=== PATIENT | male | born 1945 | race Caucasian/White ===

== ENCOUNTER 2021-03-09 19:14 | Emergency (ER) | payer BC, MEDICARE ==
[2021-03-09 20:26] LABS: RED BLOOD COUNT 2.18 M/UL (4.20-5.50); WHITE BLOOD COUNT 11.6 K/UL (4.5-11.0)
[2021-03-09 20:41] LABS: HEMOGLOBIN 3.9 gm/dl (14.0-17.5)
[2021-03-10 01:50] LABS: WHITE BLOOD COUNT 14.3 K/UL (4.5-11.0)
[2021-03-10 01:54] LABS: HEMOGLOBIN 7.2 gm/dl (14.0-17.5); RED BLOOD COUNT 2.99 M/UL (4.20-5.50)
[2021-03-10 05:35] LABS: HEMOGLOBIN 7.3 gm/dl (14.0-17.5); RED BLOOD COUNT 2.97 M/UL (4.20-5.50)
[2021-03-10 05:36] LABS: WHITE BLOOD COUNT 19.9 K/UL (4.5-11.0)
[2021-03-11 09:14] LABS: HBSAG SCREEN Negative (Negative); HEP A AB, IGM Negative (Negative); HEP B CORE AB, IGM Negative (Negative); HEP C VIRUS AB 0.1 (0.0-0.9)
== END 2021-03-10 14:10 | disposition short-term general hospital (02) ==
LOC: ER1 19:14
PROVIDERS: Family Medicine
DX: K92.2 Gastrointestinal hemorrhage, unspecified (principal); E87.6 Hypokalemia; Z20.822 Contact with and (suspected) exposure to COVID-19
CPT/HCPCS: 36430; 36600; 51702; 71045; 76700; 80048; 80053; 80074; 81001; 82272; 82803; 82962; 85025; 85027; 85610; 86850; 86900; 86901; 86920; 86927; 87086; 96374; 96375; 99285; C9113; J1940; J2405; J7050; J7070; P9016; P9017; U0002

== ENCOUNTER 2021-06-04 11:17 | Emergency (ER) | payer BC, MEDICARE ==
[2021-06-04 12:09] LABS: RED BLOOD COUNT 2.32 M/UL (4.20-5.50)
[2021-06-04 12:48] LABS: HEMOGLOBIN 6.5 gm/dl (14.0-17.5)
[2021-06-04] MEDS ORDERED: PROTONIX40 MG PO (17:19)
[2021-06-04] MEDS ORDERED: FERREX 150 PLU1 EACH PO (17:19)
== END 2021-06-04 21:00 | disposition home or self-care (01) ==
LOC: ER1 11:17
PROVIDERS: Physician Assistant
DX: D64.9 Anemia, unspecified (principal); D61.818 Other pancytopenia; I11.9 Hypertensive heart disease without heart failure; E78.5 Hyperlipidemia, unspecified; E10.9 Type 1 diabetes mellitus without complications; I25.10 Atherosclerotic heart disease of native coronary artery without angina pectoris; Z95.1 Presence of aortocoronary bypass graft; Z91.19 Patient's noncompliance with other medical treatment and regimen
CPT/HCPCS: 36430; 80048; 80076; 81001; 83540; 83550; 85025; 85610; 86850; 86900; 86901; 86920; 87086; 96374; 99283; 99284; C9113; P9016

== ENCOUNTER 2021-08-02 12:45 | Inpatient (IN) | payer MEDICARE, MEDICAID ==
[~2021-08-02] VITALS: Ht 172.7 cm; Wt 68.0 kg
[~2021-08-02 12:45] MED LIST: FERREX 150 PLU1 EACH PO; PROTONIX40 MG PO
[2021-08-02 14:17] LABS: RED BLOOD COUNT 2.59 M/UL (4.20-5.50); WHITE BLOOD COUNT 5.4 K/UL (4.5-11.0)
[2021-08-02 14:43] LABS: HEMOGLOBIN 6.4 gm/dl (14.0-17.5)
[2021-08-03 02:13] LABS: HEMOGLOBIN 8.4 gm/dl (14.0-17.5)
[2021-08-03 04:27] LABS: HEMOGLOBIN 7.8 gm/dl (14.0-17.5); WHITE BLOOD COUNT 4.6 K/UL (4.5-11.0)
[2021-08-03 04:29] LABS: RED BLOOD COUNT 3.18 M/UL (4.20-5.50)
[2021-08-03] MEDS ORDERED: RAMIPRIL5 MG PO (10:44)
[2021-08-03] MEDS ORDERED: ENDOCET 10-3251 EACH PO (10:44)
[2021-08-03] MEDS ORDERED: PROTONIX 40 MG40 M1 PO (10:44)
[2021-08-03] MEDS ORDERED: HUMALOG100 UNIT/1 SQ (10:45)
[2021-08-03] MEDS ORDERED: TRAZODONE HCL50 MG PO (10:45)
[2021-08-03] MEDS ORDERED: FLOMAX 0.4 MG0.4 MG PO (10:46)
[2021-08-03] MEDS ORDERED: CLOPIDOGREL75 MG PO (10:46)
[2021-08-03] MEDS ORDERED: RANEXA500 MG PO (10:46)
[2021-08-03] MEDS ORDERED: KLOR-CON M2020 MEQ PO (10:46)
[2021-08-03] MEDS ORDERED: VITAMIN D350 MCG PO (10:47)
[2021-08-03] MEDS ORDERED: ASPIRIN EC81 MG PO (10:47)
[2021-08-03] MEDS ORDERED: MULTIPLE VITAM1 EAC1 PO (10:47)
[2021-08-03] MEDS ORDERED: ATORVASTATIN CA80 MG PO (10:48)
[2021-08-03] MEDS ORDERED: MIRTAZAPINE15 MG PO (10:48)
[2021-08-03] MEDS ORDERED: FUROSEMIDE20 MG PO (10:48)
[2021-08-03 16:08] LABS: HEMOGLOBIN 8.4 gm/dl (14.0-17.5); RED BLOOD COUNT 3.36 M/UL (4.20-5.50); WHITE BLOOD COUNT 5.2 K/UL (4.5-11.0)
[2021-08-04 03:31] LABS: HEMOGLOBIN 8.1 gm/dl (14.0-17.5); RED BLOOD COUNT 3.18 M/UL (4.20-5.50); WHITE BLOOD COUNT 5.1 K/UL (4.5-11.0)
[2021-08-05 06:44] LABS: HEMOGLOBIN 8.5 gm/dl (14.0-17.5); RED BLOOD COUNT 3.38 M/UL (4.20-5.50)
[2021-08-05 06:53] LABS: WHITE BLOOD COUNT 3.7 K/UL (4.5-11.0)
[2021-08-05 07:10] LABS: BUN/CREATININE RATIO 10 (0-10)
[2021-08-06 05:55] LABS: RED BLOOD COUNT 3.16 M/UL (4.20-5.50)
[2021-08-06 05:57] LABS: WHITE BLOOD COUNT 4.9 K/UL (4.5-11.0)
[2021-08-06] MEDS ORDERED: LIDOCAINE PAIN1 EACH TOP (09:24)
== END 2021-08-06 13:59 | disposition home or self-care (01) | DRG 917 ==
LOC: ER1 12:45 → CDU 16:50 → MED SURG 4 16:50 → CDU 16:50 → MED SURG 4 08-03 15:30
PROVIDERS: Emergency Medicine; Physician Assistant; ADMIT Internal Medicine
PROC: 30233N1 Transfusion of Nonautologous Red Blood Cells into Peripheral Vein, Percutaneous Approach (ICD-10-PCS; principal; 2021-08-02)
PROC: 0DJ08ZZ Inspection of Upper Intestinal Tract, Via Natural or Artificial Opening Endoscopic (ICD-10-PCS; 2021-08-04)
PROC: 0DJD8ZZ Inspection of Lower Intestinal Tract, Via Natural or Artificial Opening Endoscopic (ICD-10-PCS; 2021-08-05)
DX: T39.011A Poisoning by aspirin, accidental (unintentional), initial encounter (principal); K57.31 Diverticulosis of large intestine without perforation or abscess with bleeding; Z20.822 Contact with and (suspected) exposure to COVID-19; K92.1 Melena; D62 Acute posthemorrhagic anemia; N17.9 Acute kidney failure, unspecified; N39.0 Urinary tract infection, site not specified; T39.391A Poisoning by other nonsteroidal anti-inflammatory drugs [NSAID], accidental (unintentional), initial encounter; W18.30XA Fall on same level, unspecified, initial encounter; I12.9 Hypertensive chronic kidney disease with stage 1 through stage 4 chronic kidney disease, or unspecified chronic kidney disease; D63.1 Anemia in chronic kidney disease; K64.8 Other hemorrhoids; N40.0 Benign prostatic hyperplasia without lower urinary tract symptoms; G89.29 Other chronic pain; E78.00 Pure hypercholesterolemia, unspecified; G30.0 Alzheimer's disease with early onset; E11.22 Type 2 diabetes mellitus with diabetic chronic kidney disease; F02.80 Dementia in other diseases classified elsewhere, unspecified severity, without behavioral disturbance, psychotic disturbance, mood disturbance, and anxiety; F03.90 Unspecified dementia, unspecified severity, without behavioral disturbance, psychotic disturbance, mood disturbance, and anxiety; N18.9 Chronic kidney disease, unspecified; I25.10 Atherosclerotic heart disease of native coronary artery without angina pectoris; T39.015A Adverse effect of aspirin, initial encounter; Z95.5 Presence of coronary angioplasty implant and graft; Z79.01 Long term (current) use of anticoagulants; Z79.4 Long term (current) use of insulin; Z79.899 Other long term (current) drug therapy; Z90.49 Acquired absence of other specified parts of digestive tract
CPT/HCPCS: 36415; 36430; 80048; 80053; 81001; 82962; 83735; 85014; 85018; 85025; 85027; 86850; 86900; 86901; 86920; 87040; 93005; 96374; 97161; 99284; C9113; G0378; J2250; J3010; J7050; P9016; U0002

== ENCOUNTER 2021-12-03 11:17 | Emergency (ER) | payer MEDICARE ==
[~2021-12-03 11:17] MED LIST changes: +ASPIRIN EC81 MG PO; +ATORVASTATIN CA80 MG PO; +CLOPIDOGREL75 MG PO; +ENDOCET 10-3251 EACH PO; +FLOMAX 0.4 MG0.4 MG PO; +FUROSEMIDE20 MG PO; +HUMALOG100 UNIT/1 SQ; +KLOR-CON M2020 MEQ PO; +LIDOCAINE PAIN1 EACH TOP; +MIRTAZAPINE15 MG PO; +MULTIPLE VITAM1 EAC1 PO; +PROTONIX 40 MG40 M1 PO; +RAMIPRIL5 MG PO; +RANEXA500 MG PO; +TRAZODONE HCL50 MG PO; +VITAMIN D350 MCG PO
[2021-12-03 13:14] LABS: RED BLOOD COUNT 2.63 M/UL (4.20-5.50); WHITE BLOOD COUNT 11.9 K/UL (4.5-11.0)
[2021-12-03 13:26] LABS: HEMOGLOBIN 4.9 gm/dl (14.0-17.5)
== END 2021-12-03 19:44 ==
LOC: ER1 11:17
PROVIDERS: Family Medicine
DX: D64.9 Anemia, unspecified (principal); K92.2 Gastrointestinal hemorrhage, unspecified; F03.90 Unspecified dementia, unspecified severity, without behavioral disturbance, psychotic disturbance, mood disturbance, and anxiety; R79.89 Other specified abnormal findings of blood chemistry; E86.0 Dehydration; E11.9 Type 2 diabetes mellitus without complications; I21.4 Non-ST elevation (NSTEMI) myocardial infarction; Z95.5 Presence of coronary angioplasty implant and graft; Z79.82 Long term (current) use of aspirin; Z79.02 Long term (current) use of antithrombotics/antiplatelets; Z87.891 Personal history of nicotine dependence
CPT/HCPCS: 36430; 71045; 80053; 82272; 82550; 82553; 82962; 84484; 85025; 86850; 86900; 86901; 86920; 93005; 96374; 99285; C9113; P9016

== ENCOUNTER 2022-02-01 08:37 | Emergency (ER) | payer MEDICARE | END 2022-02-01 08:50 | disposition left against medical advice (07) | LOC: ER1 08:37 | DX: Z53.21 Procedure and treatment not carried out due to patient leaving prior to being seen by health care provider (principal) ==

== ENCOUNTER 2022-02-17 12:28 | Emergency (ER) | payer MEDICARE ==
[2022-02-17 13:59] LABS: RED BLOOD COUNT 2.84 M/UL (4.20-5.50)
[2022-02-17 14:04] LABS: HEMOGLOBIN 6.2 gm/dl (14.0-17.5)
== END 2022-02-18 01:15 | disposition short-term general hospital (02) ==
LOC: ER1 12:28
PROVIDERS: Physician Assistant
DX: I11.0 Hypertensive heart disease with heart failure (principal); I50.9 Heart failure, unspecified; D64.9 Anemia, unspecified; E11.9 Type 2 diabetes mellitus without complications; I25.2 Old myocardial infarction; J44.9 Chronic obstructive pulmonary disease, unspecified; E78.5 Hyperlipidemia, unspecified; Z79.84 Long term (current) use of oral hypoglycemic drugs; Z95.5 Presence of coronary angioplasty implant and graft
CPT/HCPCS: 71045; 80053; 81001; 82272; 82550; 82553; 82803; 83605; 83880; 84484; 85025; 86850; 86900; 86901; 86920; 93005; 99285; J7050; P9016